=== PATIENT | female | born 1940 | race African-American/Black ===

== ENCOUNTER → 2019-05-22 12:36 | Outpatient (CLI) | payer MEDICARE, MEDICAID | END | disposition home or self-care (01) | LOC: D.US 12:36 | PROVIDERS: ATTEND Internal Medicine Nephrology | DX: N18.4 Chronic kidney disease, stage 4 (severe) (principal); E11.22 Type 2 diabetes mellitus with diabetic chronic kidney disease; D63.1 Anemia in chronic kidney disease ==

== ENCOUNTER 2019-11-08 20:23 | Inpatient (IN) | payer MEDICARE, MEDICAID ==
[~2019-11-08] VITALS: Ht 165.1 cm; Wt 62.7 kg
[~2019-11-08 20:23] MED LIST: CRESTOR10 MG PO; FUROSEMIDE40 MG PO; LISINOPRIL40 MG PO; PROCARDIA XL60 MG PO; TUMS X-STR300 MG PO; ULTRAM50 MG PO
[2019-11-08 22:28] VITALS: BP 183/70
--- NOTE | 2019-11-08 23:56 | NUR ---
WHILE ASSESSING PT SHE REQUESTED TO GO TO THE B/R. ASSISTED HER OOB AND WHEN WE GOT TO B/R DOOR SHE BECAME RIDGED AND EYES FORWARD. ASSISTEED TO TOILET SEAT AND HER BODY BECAME STIFF AND HER HEAD WHEN BACKWARD TOWARDS THE WALL. ABLE TO PULL HER AWAY FROM WALL KEEPING HER FROM HITTING HER HEAD. SHE HAD STOPPED BREATHING AND THIS NURSE CALLED A RAPID. SHE WAS COMMING TO WHEN ICU AND RT SHOWED UP. GOT HER BACK TO BED AND SHE BECAME NAUSEATED AND STARTED VOMITING. EMESIS WAS A DARK BROWN IN COLOR. SHE THEN STARTED DRY HEAVING. LAB ANTONIA BLOOD AND AWAITING RESULTS.
[2019-11-09 00:03] LABS: BASOPHILS 0.1 % (0-2); EOSINOPHILS 0 % (0-7); HEMATOCRIT 27.4 % (36.0-48.0); HEMOGLOBIN 9.4 g/dL (12-16); IMMATURE GRANULOCYTES 0.3 % (0-5); LYMPHOCYTES 7.3 % (15-50); MCH 28.8 pg (26.0-34.0); MCHC 34.3 g/dL (31.0-37.0); MEAN PLATELET VOLUME 8.3 fL (7.4-10.4); MONOCYTES 5.3 % (2-11); PLATELET COUNT 136 10x3/uL (130-400); RBC 3.26 10x6/uL (4.00-5.40); RDW 15.2 % (11.5-14.5); WBC 12.8 10x3/uL (4.8-10.8)
[2019-11-09 00:26] VITALS: BP 183/70; BMI 19.8
[2019-11-09 01:02] LABS: ALBUMIN 3.4 g/dL (3.4-5.0); BILIRUBIN - TOTAL 0.72 mg/dL (0.2-1.3); CALCIUM 8.5 mg/dL (8.5-10.1); CARBON DIOXIDE 14.2 mmol/L (21.0-32.0); CREATININE - SERUM 6.5 mg/dL (0.6-1.3); POTASSIUM - SERUM 3.2 mmol/L (3.5-5.1); PROTEIN - SERUM 7.8 g/dL (6.4-8.2)
[2019-11-09 04:00] VITALS: BP 150/66
[2019-11-09 05:19] LABS: BASOPHILS 0 % (0-2); EOSINOPHILS 0 % (0-7); HEMATOCRIT 27.3 % (36.0-48.0); HEMOGLOBIN 9.2 g/dL (12-16); IMMATURE GRANULOCYTES 0.3 % (0-5); MCH 28.3 pg (26.0-34.0); MCHC 33.7 g/dL (31.0-37.0); MEAN PLATELET VOLUME 8.8 fL (7.4-10.4); MONOCYTES 4.2 % (2-11); NEUTROPHILS 89.5 % (40-80); PLATELET COUNT 151 10x3/uL (130-400); RBC 3.25 10x6/uL (4.00-5.40); RDW 15.3 % (11.5-14.5); WBC 11.3 10x3/uL (4.8-10.8)
[2019-11-09 05:42] LABS: APTT 34.8 SECONDS (22.8-39.4); INR 1.26 (0.85-1.17); PROTIME 15.7 SECONDS (11.6-15.0)
[2019-11-09 06:31] LABS: ALBUMIN 3.2 g/dL (3.4-5.0); ANION GAP 20.4 mmol/L (8-16); BILIRUBIN - TOTAL 0.63 mg/dL (0.2-1.3); CALCIUM 8.2 mg/dL (8.5-10.1); CARBON DIOXIDE 12.7 mmol/L (21.0-32.0); CREATININE - SERUM 6.5 mg/dL (0.6-1.3); PHOSPHOROUS 6.2 mg/dL (2.5-4.9); POTASSIUM - SERUM 3.1 mmol/L (3.5-5.1); PROTEIN - SERUM 7.4 g/dL (6.4-8.2); THYROID STIMULATING HORMONE 0.79 uIU/mL (0.36-3.74)
--- NOTE | 2019-11-09 07:43 | NUR ---
PT LAYING SUPINE, RR EVEN AND UNLABORED. NO DISTRESS NOTED. CALL LIGHT WITHIN REACH. BED IN LOWEST POSITION. WILL CONTINUE TO MONITOR.
[2019-11-09 08:31] VITALS: BP 160/65
[2019-11-09 13:20] VITALS: BP 150/63
[2019-11-09 14:03] LABS: ANION GAP 18.4 mmol/L (8-16); CALCIUM 8.1 mg/dL (8.5-10.1); CARBON DIOXIDE 14.9 mmol/L (21.0-32.0); CREATININE - SERUM 6.6 mg/dL (0.6-1.3); POTASSIUM - SERUM 3.3 mmol/L (3.5-5.1)
--- NOTE | 2019-11-09 17:00 | NUR ---
NOTICED PT HAD NOT URINATED TODAY. PT DID NOT COMPLAIN OF PAIN OR DISCOMFORT. BLADDER SCAN PERFORMED. 801 MLS OF URINE NOTED. ARELLANO PLACED. BALLOON INFLATED WITH 10MLS SALINE. PT TOLERATED WELL. CALL LIGHT WITHIN REACH. PT ASSISTED WITH TRAY. DENIES FURTHER NEEDS OR PAIN AT THIS TIME. BED IN LOWEST POSITION. WILL CONTINUE TO MONITOR.
[2019-11-09 18:29] VITALS: BP 162/71
--- NOTE | 2019-11-09 19:24 | NUR ---
INITIAL ROUNDS COMPLETD. PT DECLINE ULTRAM AT THIS TIME. SR UP X2,CALL LIGHT WITHIN REACH.
[2019-11-09 20:49] LABS: BILIRUBIN NEGATIVE (NEGATIVE); GLUCOSE NEGATIVE (NEGATIVE); KETONE NEGATIVE (NEGATIVE); NITRITE NEGATIVE (NEGATIVE); SPECIFIC GRAVITY 1.015 (1.005-1.020); UROBILINOGEN NORMAL (NORMAL)
[2019-11-09 20:50] LABS: BACTERIA MODERATE /hpf (NEGATIVE); EPITHELIAL CELLS 0-5 /hpf (0-5); RED CELLS - URINE 0-5 /hpf (0-5)
--- NOTE | 2019-11-09 21:42 | NUR ---
PM MEDS GIVEN. PT DENIES ANY DISCOMFORT. CALL LIGHT WITHIN REACH.
[2019-11-10 00:30] VITALS: BP 178/72
--- NOTE | 2019-11-10 00:49 | NUR ---
PT AWAKE; DENIES ANY DISCOMFORT. SR UP X2, CALL LIGHT WITHIN REACH AND BED ALARM ON.
--- NOTE | 2019-11-10 02:57 | NUR ---
PT RESTING WITH EYES CLOSED. RESP EVEN AND REGULAR. SR UP X2, CALL LIGHT WITHIN REACH AND BED ALARM ON.
--- NOTE | 2019-11-10 04:13 | NUR ---
PT RESTING WITH EYES CLOSED. RESP EVEN AND REGULAR. SR UP X2, CALL LIGHT WITHIN REACH AND BED ALARM ON.
[2019-11-10 05:00] VITALS: BP 137/49
--- NOTE | 2019-11-10 05:48 | NUR ---
VSS THROUGHOUT NIGHT. PT DENIED ANY DISCOMOFRT. NEEDS MET; WILL CONTINUE TO MONITOR.
[2019-11-10 06:18] LABS: BASOPHILS 0.1 % (0-2); EOSINOPHILS 0 % (0-7); HEMATOCRIT 23.9 % (36.0-48.0); HEMOGLOBIN 8.1 g/dL (12-16); IMMATURE GRANULOCYTES 0.3 % (0-5); LYMPHOCYTES 8.6 % (15-50); MCH 28.5 pg (26.0-34.0); MCHC 33.9 g/dL (31.0-37.0); MCV 84.2 fL (80.0-100.0); MEAN PLATELET VOLUME 8.2 fL (7.4-10.4); MONOCYTES 5.2 % (2-11); NEUTROPHILS 85.8 % (40-80); PLATELET COUNT 123 10x3/uL (130-400); RBC 2.84 10x6/uL (4.00-5.40); RDW 15.6 % (11.5-14.5); WBC 11.6 10x3/uL (4.8-10.8)
[2019-11-10 06:54] LABS: MAGNESIUM - SERUM 2.2 mg/dL (1.8-2.4); PHOSPHOROUS 5.2 mg/dL (2.5-4.9)
[2019-11-10 06:59] LABS: % SATURATION 35 % (15-55); IRON 55 ug/dl (35-150); TOTAL IRON BIND CAPACITY 153 ug/dl (260-445); UNSAT IRON BIND CAPACITY 98 ug/dl (150-375)
--- NOTE | 2019-11-10 07:15 | NUR ---
RECEIVED PT IN BED EYES CLOSED RESP UNLABORED SKIN W/D COLOR WNL NAD NOTED
[2019-11-10 08:30] VITALS: BP 125/49
[2019-11-10 12:00] VITALS: BP 137/59
[2019-11-10 13:43] LABS: ANION GAP 17.4 mmol/L (8-16); CALCIUM 7.6 mg/dL (8.5-10.1); CARBON DIOXIDE 14.1 mmol/L (21.0-32.0); CREATININE - SERUM 5.7 mg/dL (0.6-1.3); POTASSIUM - SERUM 3.5 mmol/L (3.5-5.1)
[2019-11-10 13:53] VITALS: Ht 165.1 cm; Wt 62.7 kg
[2019-11-10 16:50] VITALS: BP 147/54
--- NOTE | 2019-11-10 19:32 | NUR ---
REPORT RECEIVED AND ROUNDING COMPLETE. PATIENT LAYING IN BED EYES CLOSED, BREATHING EVEN AND UNLABORED. EASY TO WAKE UP, STATES NO NEEDS AT THIS TIME. RIGHT AC PIV, RUNNING FLUIDS AT THIS TIME, ARELLANO CATH WITH SCANT AMOUNT OF URINE IN ARELLANO BAG. CALL LIGHT WITHIN REACH AND BED IN LOWEST LOCKED POSITION. BED ALARM ON AND WORKING PROPERLY.
[2019-11-10 20:00] VITALS: BP 125/44
[2019-11-11] VITALS (7 sets, daily range): BP systolic 124–146; BP diastolic 45–63
--- NOTE | 2019-11-11 05:29 | NUR ---
PATIENT PULLED OUT RIGHT AC SHAWNEE DILL RN PLACED A 20 GAUGE IN RIGHT FOREARM, 1 STICK PATIENT TOLERATED WELL.
[2019-11-11 06:59] LABS: T4 THYROXIN - FREE 1.15 ng/dL (0.76-1.46); THYROID STIMULATING HORMONE 0.98 uIU/mL (0.36-3.74)
[2019-11-11 08:46] LABS: ANION GAP 14.5 mmol/L (8-16); BASOPHILS 0.2 % (0-2); CALCIUM 7.8 mg/dL (8.5-10.1); CREATININE - SERUM 5.2 mg/dL (0.6-1.3); EOSINOPHILS 0 % (0-7); HEMATOCRIT 21.7 % (36.0-48.0); IMMATURE GRANULOCYTES 0.2 % (0-5); LYMPHOCYTES 14.4 % (15-50); MCH 28.5 pg (26.0-34.0); MCHC 34.1 g/dL (31.0-37.0); MCV 83.5 fL (80.0-100.0); MEAN PLATELET VOLUME 8.7 fL (7.4-10.4); NEUTROPHILS 78.2 % (40-80); PLATELET COUNT 137 10x3/uL (130-400); POTASSIUM - SERUM 3.2 mmol/L (3.5-5.1); RDW 15.4 % (11.5-14.5); WBC 9.1 10x3/uL (4.8-10.8)
[2019-11-11 08:47] LABS: CARBON DIOXIDE 19.7 mmol/L (21.0-32.0)
[2019-11-11 08:52] LABS: ALBUMIN 2.7 g/dL (3.4-5.0); BILIRUBIN - TOTAL 0.31 mg/dL (0.2-1.3); PROTEIN - SERUM 6.3 g/dL (6.4-8.2)
[2019-11-11 08:58] LABS: HEMOGLOBIN 7.4 g/dL (12-16)
--- NOTE | 2019-11-11 09:40 | NUR ---
TELEMETRY SR. UP AMBULATING WITH PT ASSIST. ARELLANO INTACT.
--- NOTE | 2019-11-11 09:54 | NUR ---
CON SENTS SIGNED FOR BLOOD TRANSFUSION.
--- NOTE | 2019-11-11 11:45 | NUR ---
1 UNIT PRBC STARTED. VS WNL. LINE IS PATENT. WILL MONITOR.
--- NOTE | 2019-11-11 19:52 | NUR ---
REPORT RECIEVED AND ROUNDING COMPLETE. PATIENT LAYING IN BED WITH EYES CLOSED, BREATHING EVEN AND UNLABORED. NO DISTRESSED NOTED. SON AT BEDSIDE WHO STATES NO NEEDS OR COMPLAINTS. PATIENT HAS RIGHT FOREARM WITH FLUIDS RUNNING. CALL LIGHT WITHIN REACH AND BED IN LOWEST POSITION.
[2019-11-12 04:34] VITALS: BP 133/56
[2019-11-12 07:43] LABS: BASOPHILS 0.1 % (0-2); EOSINOPHILS 0.1 % (0-7); HEMATOCRIT 25.8 % (36.0-48.0); IMMATURE GRANULOCYTES 0.3 % (0-5); LYMPHOCYTES 14.3 % (15-50); MCH 28.9 pg (26.0-34.0); MCHC 34.5 g/dL (31.0-37.0); MCV 83.8 fL (80.0-100.0); MEAN PLATELET VOLUME 8.6 fL (7.4-10.4); MONOCYTES 8.3 % (2-11); NEUTROPHILS 76.9 % (40-80); PLATELET COUNT 125 10x3/uL (130-400); RBC 3.08 10x6/uL (4.00-5.40); RDW 15.1 % (11.5-14.5); WBC 9.6 10x3/uL (4.8-10.8)
[2019-11-12 07:51] LABS: ANION GAP 11.3 mmol/L (8-16); CALCIUM 7.7 mg/dL (8.5-10.1); CARBON DIOXIDE 24.1 mmol/L (21.0-32.0); CREATININE - SERUM 4.9 mg/dL (0.6-1.3); HEMOGLOBIN 8.9 g/dL (12-16); POTASSIUM - SERUM 3.4 mmol/L (3.5-5.1)
[2019-11-12 07:58] LABS: MAGNESIUM - SERUM 1.9 mg/dL (1.8-2.4); PHOSPHOROUS 2.9 mg/dL (2.5-4.9)
[2019-11-12 09:00] VITALS: BP 140/55
[2019-11-12 11:00] VITALS: BP 132/55
--- NOTE | 2019-11-12 13:22 | NUR ---
Nutrition Follow-up: PO intake has been fluctuating but noted pt ate ~75% of breakfast this AM. Diet: Renal PO intake: 46% avg x 9 meals (25-100%) Wt: 119# (11/09) Labs noted: Na 127, K+ 3.4, Ca 7.7, PO4 2.9 Meds noted: Calcitriol, Tums, KCl -MD may consider liberalizing diet 2/2 low K+ & PO4 to encourage PO intake. -Offer nutrition supplements. -Monitor wt. -RD following.
[2019-11-12 15:00] VITALS: BP 136/60
[2019-11-12 20:00] VITALS: BP 133/58
[2019-11-13 04:00] VITALS: BP 150/63
[2019-11-13 09:00] VITALS: BP 154/67
[2019-11-13 11:00] VITALS: BP 148/56
--- NOTE | 2019-11-13 13:01 | NUR ---
TELEMETRY SR 80.
--- NOTE | 2019-11-13 14:58 | NUR ---
OT NOTE: PT COMPLETED SUPINE TO STAND MIN A. PT COMPLETED ADL MOB WITH CGA. [id number] THANK YOU,SWETA CLARK
[2019-11-13 15:00] VITALS: BP 153/61
[2019-11-13 16:26] LABS: CALCIUM 7.5 mg/dL (8.5-10.1); CREATININE - SERUM 4.2 mg/dL (0.6-1.3)
--- NOTE | 2019-11-13 16:38 | MORECARE ---
CASE MANAGEMENT DISCHARGE SUMMARY PATIENT: IFEOMA ALDANA UNIT: [id number] ADM DATE: 11/09/19 AGE: 79 : 42 SEX: F [facility] AUTHOR: VANIA OLVERA PHYSICIAN: REFERRING PHYSICIAN: SHANIA VALDEZ MD DATE OF SERVICE: 11/13/19 Discharge Plan Patient Name: IFEOMA ALDANA Facility: [facility]:[place] : 1940 Planned Disposition: Anticipated Discharge Date: Discharge Date: Expected LOS: Initial Reviewer: [email or web address] Initial Review Date: 11/08/2019 Generated: 11/13/19 5:37 pm Coverage Notice Reviewer: [id number] Rin Nolan Notice Issued Date-Time: 11/13/2019 16:33 Notice Type: IM Discharge Notice Notice Delivered To: Family Member Relationship to Patient: Son Product Test Specialist Name: Josefa Salgado Delivery Method: HAND - Hand Delivered Chantel Days: Prior Verbal Notification: Recipient Understood Notice: Yes Recipient Signature: Yes Med Rec Note Co-signed by Attending: Coverage Notice Comment: DC IMM signed by son Ludyinal to chart. Patient Name: IFEOMA ALDANA Page [phone] at 1638 All edits/amendments must be made on the electronic document DICTATION DATE: 11/13/191636 PREPARED FOODS SUPERVISOR: TRAV 11/13/19 1637 RPT#: [id number] DC DATE: STATUS: ADM IN [address] [address] END OF REPORT
[2019-11-13 16:43] LABS: ANION GAP 6.6 mmol/L (8-16); CARBON DIOXIDE 32.9 mmol/L (21.0-32.0); POTASSIUM - SERUM 4.5 mmol/L (3.5-5.1)
--- NOTE | 2019-11-13 16:47 | MORECARE ---
CASE MANAGEMENT DISCHARGE SUMMARY PATIENT: IFEOMA ALDANA UNIT: [id number] ADM DATE: 11/09/19 AGE: 79 : 42 SEX: F ROOM/BED: D.2114 AUTHOR: VANIA OLVERA PHYSICIAN: REFERRING PHYSICIAN: SHANIA VALDEZ MD DATE OF SERVICE: 11/13/19 Discharge Plan Patient Name: IFEOMA ALDANA Facility: [facility]:[place] : 1940 Planned Disposition: Detention Facility Anticipated Discharge Date: Discharge Date: Expected LOS: Initial Reviewer: [email or web address] Initial Review Date: 11/08/2019 Generated: 11/13/19 5:47 pm Comments DCP- Discharge Planning Updated by [email or web address]: Yajairakasie Nolan on 11/13/19 3:[address] CM met with patient and her son, Josefa Salgado #[phone], regarding DC plans. Patient's son states he would like for his mother to go into [facility] in [place] and the patient is in agreement to same. PCP: Dr. Keller. Pharmacy: [facility]. DME: None. Emergency contact: Josefa Salgado (son) [phone], at bedside. CM will be in contact with the nursing facility for admission. CM will assist with DC plans/needs PRN. DCPIA - Discharge Planning Initial Assessment Updated by [id number]: Yajaira oRdriguezlroy on 11/13/19 4:44 pm * Is the patient Alert and Oriented? Yes * How many steps to enter\exit or inside your home? None * P[facility] Dr. Keller * [facility] * Preadmission Environment Home with Family * ADLs Partial Dependent * Equipment None * Other Equipment None * List name and contact numbers for known caregivers / representatives who currently or will assist patient after discharge: Josefa salgado (ericka) [phone] * Please name any agencies selected above. [facility] * Additional services required to return to the preadmission environment? Yes * Can the patient safely return to the preadmission environment? No * Has this patient been hospitalized within the prior 30 days at any hospital? No Coverage Notice Reviewer: [id number] Rin Nolan Notice Issued Date-Time: 11/13/2019 16:33 Notice Type: IM Discharge Notice Notice Delivered To: Family Member Relationship to Patient: Son Caramel Coloring Operator Name: Josefa Salgado Delivery Method: HAND - Hand Delivered Chantel Days: Prior Verbal Notification: Recipient Understood Notice: Yes Recipient Signature: Yes Med Rec Note Co-signed by Attending: Coverage Notice Comment: DC IMM signed by son Orginal to chart. Last DP export: 11/13/19 3:38 pm Patient Name: GIO ALDANALILIAKIRA Page [phone] at 1647 All edits/amendments must be made on the electronic document DICTATION DATE: 11/13/191646 SHEET PILE HAMMER OPERATOR: TRAV 11/13/191646 RPT#: [id number] DC DATE: STATUS: ADM IN [facility] [address] [place] [address] END OF REPORT
--- NOTE | 2019-11-13 19:30 | NUR ---
RECEIVED BEDSIDE REPORT. PATIENT IS ALERT AND ORIENTED, RESTING COMFORTABLY IN BED. RESPIRATIONS ARE EVEN AND UNLABORED. NO S/S OF DISTRESS. NO C/O PAIN. CALL LIGHT WITHIN REACH. WILL CPOC.
[2019-11-13 21:11] VITALS: BP 145/62
[2019-11-14 00:32] VITALS: BP 151/63
[2019-11-14 04:51] VITALS: BP 145/56
[2019-11-14 06:28] LABS: ALBUMIN 2.4 g/dL (3.4-5.0); ANION GAP 5.6 mmol/L (8-16); BILIRUBIN - TOTAL 0.41 mg/dL (0.2-1.3); CALCIUM 7.7 mg/dL (8.5-10.1); CARBON DIOXIDE 33.1 mmol/L (21.0-32.0); CREATININE - SERUM 4.1 mg/dL (0.6-1.3); MAGNESIUM - SERUM 1.5 mg/dL (1.8-2.4); PHOSPHOROUS 2.4 mg/dL (2.5-4.9); POTASSIUM - SERUM 4.7 mmol/L (3.5-5.1); PROTEIN - SERUM 5.8 g/dL (6.4-8.2)
[2019-11-14 09:00] VITALS: BP 158/66
[2019-11-14 11:00] VITALS: BP 167/67
--- NOTE | 2019-11-14 14:14 | NUR ---
OT NOTE: PT COMPLETED BED MOB WITH MIN A. PT COMPLETED SUPINE TO SIT WITH MIN A. PT COMPLETED EOB SITTING WITH SBA. PT COMPLETED FACE/HAND HYGIENE WITH SET UP AT EOB. [phone] THANK YOU,SWETA CLARK
[2019-11-14 15:00] VITALS: BP 165/68
--- NOTE | 2019-11-14 15:00 | NUR ---
RECEIVED BEDSIDE REPORT. PATIENT IS ALERT AND ORIENTED, RESTING COMFORTABLY IN BED. RESPIRATIONS ARE EVEN AND UNLABORED. NO S/S OF DISTRESS. NO S/S OF DISTRESS. NO C/O PAIN. CALL LIGHT WITHIN REACH. WILL CPOC.
--- NOTE | 2019-11-14 17:56 | MORECARE ---
CASE MANAGEMENT DISCHARGE SUMMARY PATIENT: IFEOMA ALDANA UNIT: [id number] ADM DATE: 11/09/19 AGE: 79 : 42 SEX: F ROOM/BED: D.2114 AUTHOR: VANIA OLVERA PHYSICIAN: REFERRING PHYSICIAN: SHANIA VALDEZ MD DATE OF SERVICE: 11/14/19 Discharge Plan Patient Name: IFEOMA ALDANA Facility: [facility]:[place] : 1940 Planned Disposition: [facility] Facility Anticipated Discharge Date: Discharge Date: Expected LOS: Initial Reviewer: [email or web address] Initial Review Date: 11/08/2019 Generated: 11/14/19 6:56 pm Comments DCP- Discharge Planning Updated by [id number]: Yajairakasie Nolan on 11/13/19 3:[address] CM met with patient and her son, Josefa Salgado #[phone], regarding DC plans. Patient's son states he would like for his mother to go into [facility] in [place] and the patient is in agreement to same. PCP: Dr. Keller. Pharmacy: [facility]. DME: None. Emergency contact: Josefa Salgado (son) [phone], at bedside. CM will be in contact with the nursing facility for admission. CM will assist with DC plans/needs PRN. DCPIA - Discharge Planning Initial Assessment Updated by [id number]: Yajaira Rodriguezlroy on 11/13/19 4:44 pm * Is the patient Alert and Oriented? Yes * How many steps to enter\exit or inside your home? None * [facility] Dr. Keller * [facility] * Preadmission Environment Home with Family * ADLs Partial Dependent * Equipment None * Other Equipment None * List name and contact numbers for known caregivers / representatives who currently or will assist patient after discharge: Josefa salgado (ericka) [phone] * Please name any agencies selected above. [facility] * Additional services required to return to the preadmission environment? Yes * Can the patient safely return to the preadmission environment? No * Has this patient been hospitalized within the prior 30 days at any hospital? No Coverage Notice Reviewer: [id number] Rin Nolan Notice Issued Date-Time: 11/13/2019 16:33 Notice Type: IM Discharge Notice Notice Delivered To: Family Member Relationship to Patient: Son First Assist Name: Josefa Salgado Delivery Method: HAND - Hand Delivered Chantel Days: Prior Verbal Notification: Recipient Understood Notice: Yes Recipient Signature: Yes Med Rec Note Co-signed by Attending: Coverage Notice Comment: DC IMM signed by son Orginal to chart. Last DP export: 11/13/19 3:47 pm Patient Name: GIO ALDANALILIAKIRA Page [phone] at 1756 All edits/amendments must be made on the electronic document DICTATION DATE: 11/14/191755 HOT MAN: TRAV 11/14/191755 RPT#: [id number] DC DATE: STATUS: ADM IN [facility] [address] [place] [address] END OF REPORT
[2019-11-14 20:00] VITALS: BP 142/67
[2019-11-15 05:18] LABS: ALBUMIN 2.5 g/dL (3.4-5.0); ANION GAP 5.8 mmol/L (8-16); BILIRUBIN - TOTAL 0.42 mg/dL (0.2-1.3); CALCIUM 8.1 mg/dL (8.5-10.1); CARBON DIOXIDE 34.2 mmol/L (21.0-32.0); CREATININE - SERUM 4.1 mg/dL (0.6-1.3); MAGNESIUM - SERUM 1.8 mg/dL (1.8-2.4); PHOSPHOROUS 2.7 mg/dL (2.5-4.9); PROTEIN - SERUM 5.9 g/dL (6.4-8.2)
[2019-11-15 05:20] LABS: HEMATOCRIT 27.8 % (36.0-48.0); HEMOGLOBIN 9.2 g/dL (12-16); LYMPHOCYTES 20.4 % (15-50); MCH 30.3 pg (26.0-34.0); MCHC 33.1 g/dL (31.0-37.0); MCV 91.4 fL (80.0-100.0); MEAN PLATELET VOLUME 8.6 fL (7.4-10.4); NEUTROPHILS 69.6 % (40-80); PLATELET COUNT 154 10x3/uL (130-400); RBC 3.04 10x6/uL (4.00-5.40); RDW 16.6 % (11.5-14.5); WBC 7.2 10x3/uL (4.8-10.8)
--- NOTE | 2019-11-15 08:06 | NUR ---
AM MEDS GIVEN AT THIS TIME. PT UP TO SIDE OF BED, FIXING TO EAT BREAKFAST. PT A/O X4, RESP EVEN AND NONLABORED ON RA. ARELLANO DRAINING YELLOW URINE TO GRAVITY. PT DENIES ANY NEEDS AT THIS TIME. CALL LIGHT IN REACH, NAD NOTED,W ILL CONTINUE TO MONITOR.
[2019-11-15 09:00] VITALS: BP 142/62
--- NOTE | 2019-11-15 13:46 | NUR ---
COMPLETE BED BATH AND LINEN CHANGE DONE AT THIS TIME. PT RESTING COMFORTABLY IN BED, DENIES ANY NEEDS AT THIS TIME. CALL LIGHT IN REACH, PERLA ALARM ON, NAD NOTED,W ILL CONTINUE TO MONITOR.
[2019-11-15 20:28] VITALS: BP 172/66
--- NOTE | 2019-11-16 03:25 | NUR ---
I have reviewed this patient and I concur with the Shift Assessment completed by the Licensed Practical Nurse today this shift.
[2019-11-16 05:36] LABS: BASOPHILS 0.3 % (0-2); EOSINOPHILS 0.5 % (0-7); HEMATOCRIT 27.6 % (36.0-48.0); HEMOGLOBIN 8.8 g/dL (12-16); IMMATURE GRANULOCYTES 0.2 % (0-5); LYMPHOCYTES 21.7 % (15-50); MCHC 31.9 g/dL (31.0-37.0); MCV 91.1 fL (80.0-100.0); MONOCYTES 11.4 % (2-11); NEUTROPHILS 65.9 % (40-80); PLATELET COUNT 138 10x3/uL (130-400); RBC 3.03 10x6/uL (4.00-5.40); RDW 15.5 % (11.5-14.5); WBC 6.7 10x3/uL (4.8-10.8)
[2019-11-16 05:44] LABS: ANION GAP 8.2 mmol/L (8-16); CALCIUM 8.4 mg/dL (8.5-10.1); CARBON DIOXIDE 31.6 mmol/L (21.0-32.0); POTASSIUM - SERUM 4.8 mmol/L (3.5-5.1)
--- NOTE | 2019-11-16 08:14 | NUR ---
AM MEDS GIVEN AT THIS TIME. PT UP TO SIDE OF BED, EATING BREAKFAST, DENIES ANY NEEDS AT THIS TIME. PT A/O X4, RESP EVEN AND NONLABORED ON RA. RT FA IV SL. ARELLANO DRAINING YELLOW URINE TO GRAVITY. EMPTIED 600 OF YELLOW URINE. MONITOR SHOWING SR WITH RATE 90 AND PAC. CALL LIGHT IN REACH, BEDSIDE RAILS X2, PERLA ALARM ON, NAD NOTED, WILL CONTINUE PLAN OF CARE.
[2019-11-16 10:06] VITALS: BP 171/65
--- NOTE | 2019-11-16 14:53 | NUR ---
PT RESTING COMFORTABLY IN BED, DENIES ANY NEEDS AT THIS TIME. CALL LIGHT IN REACH,NAD NOTED, WILL CONTINUE TO MONITOR.
[2019-11-16 18:06] VITALS: BP 127/61
--- NOTE | 2019-11-16 20:08 | NUR ---
1935 REPORT RECIEVED AND INITITAL ROUNDS COMPLETED. PT RESTING IN BED. CALL LIGHT IN REACH. NO DISTRESS. SEE ASSESSMENT.
[2019-11-16 21:30] VITALS: BP 143/48
--- NOTE | 2019-11-16 21:39 | NUR ---
PT RESTING IN BED. BEDTIME MEDS GIVEN. PT SAYS VERY LITTLE IN THE WAY OF CONVERSATION. DENIES PAIN OR ANY NEEDS. LEFT ARM RESERVE FOR AVF WITH GOOD BRUIT/THRILL. PT STATES IT HAS NEVER BEEN USED, JUST THERE IN CASE SHE NEEDS IT IN THE FUTURE. PIV TO RIGHT INNER FOREARM SALINE LOCKED. CALL LIGHT IN REACH.
--- NOTE | 2019-11-17 01:01 | NUR ---
PT RESTING WITH EYES CLOSED. NO DISTRESS. CPOC.
[2019-11-17 04:29] VITALS: BP 145/70
[2019-11-17 05:19] LABS: HEMATOCRIT 27.6 % (36.0-48.0); HEMOGLOBIN 8.7 g/dL (12-16); LYMPHOCYTES 17.2 % (15-50); MCH 29.4 pg (26.0-34.0); MCHC 31.5 g/dL (31.0-37.0); MCV 93.2 fL (80.0-100.0); NEUTROPHILS 70.5 % (40-80); PLATELET COUNT 143 10x3/uL (130-400); RBC 2.96 10x6/uL (4.00-5.40); RDW 16.8 % (11.5-14.5); WBC 6.1 10x3/uL (4.8-10.8)
[2019-11-17 05:32] LABS: CALCIUM 8.4 mg/dL (8.5-10.1); CARBON DIOXIDE 31.5 mmol/L (21.0-32.0); POTASSIUM - SERUM 4.5 mmol/L (3.5-5.1)
--- NOTE | 2019-11-17 07:15 | NUR ---
RECEIVED PT IN BED EYES CLOSED RESP UNLABORED SKIN W/D COLOR WNL NAD NOTED
[2019-11-17 09:00] VITALS: BP 121/47
[2019-11-17 12:00] VITALS: BP 139/52
--- NOTE | 2019-11-17 12:09 | MORECARE ---
CASE MANAGEMENT DISCHARGE SUMMARY PATIENT: IFEOMA ALDANA UNIT: [id number] ADM DATE: 11/09/19 AGE: 79 : 42 SEX: F ROOM/BED: D.2114 AUTHOR: VANIA OLVERA PHYSICIAN: REFERRING PHYSICIAN: SHANIA VALDEZ MD DATE OF SERVICE: 11/17/19 Discharge Plan Patient Name: IFEOMA ALDANA Facility: [facility]:[place] : 1940 Planned Disposition: Penitentiary Facility Anticipated Discharge Date: Discharge Date: Expected LOS: Initial Reviewer: [email or web address] Initial Review Date: 11/08/2019 Generated: 11/17/19 1:08 pm Comments DCP- Discharge Planning Updated by [email or web address]: Yajaira An on 11/13/19 3:[address] CM met with patient and her son, Josefa Salgado #[phone], regarding DC plans. Patient's son states he would like for his mother to go into [facility] in [place] and the patient is in agreement to same. PCP: Dr. Keller. [facility] DME: None. Emergency contact: Josefa Salgado (son) [phone], at bedside. CM will be in contact with the nursing facility for admission. CM will assist with DC plans/needs PRN. DCPIA - Discharge Planning Initial Assessment Updated by [id number]: Yajaira Rodriguezlroy on 11/13/19 4:44 pm * Is the patient Alert and Oriented? Yes * How many steps to enter\exit or inside your home? None * PCP Dr. Keller * [facility] * Preadmission Environment Home with Family * ADLs Partial Dependent * Equipment None * Other Equipment None * List name and contact numbers for known caregivers / representatives who currently or will assist patient after discharge: Josefa salgado (ericka) [phone] * Please name any agencies selected above. [facility] * Additional services required to return to the preadmission environment? Yes * Can the patient safely return to the preadmission environment? No * Has this patient been hospitalized within the prior 30 days at any hospital? No External Providers External Provider: [facility] Next Contact Date: Service Request Date: Service Type: Resolution: Reviewer: Comments: Coverage Notice Reviewer: [email or web address] Rin Nolan Notice Issued Date-Time: 11/13/2019 16:33 Notice Type: IM Discharge Notice Notice Delivered To: Family Member Relationship to Patient: Son Mental Health Coordinator Name: Josefa Salgado Delivery Method: HAND - Hand Delivered Chantel Days: Prior Verbal Notification: Recipient Understood Notice: Yes Recipient Signature: Yes Med Rec Note Co-signed by Attending: Coverage Notice Comment: DC IMM signed by son Dea to chart. Last DP export: 11/14/19 4:56 p Patient Name: IFEOMA ALDANA Page [phone] at 1209 All edits/amendments must be made on the electronic document DICTATION DATE: 11/17/191207 RADIOGRAPHIC TECHNOLOGIST: TRAV 11/17/19 1208 RPT#: [id number] DC DATE: STATUS: ADM IN [facility] [address] [place] [address] END OF REPORT
--- NOTE | 2019-11-17 12:48 | MORECARE ---
CASE MANAGEMENT DISCHARGE SUMMARY PATIENT: IFEOMA ALDANA UNIT: [id number] ADM DATE: 11/09/19 AGE: 79 : 42 SEX: F ROOM/BED: D.2114 AUTHOR: VANIA OLVERA PHYSICIAN: REFERRING PHYSICIAN: SHANIA VALDEZ MD DATE OF SERVICE: 11/17/19 Discharge Plan Patient Name: IFEOMA ALDANA Facility: [facility]:[place] : 1940 Planned Disposition: [facility] Facility Anticipated Discharge Date: Discharge Date: Expected LOS: Initial Reviewer: [email or web address] Initial Review Date: 11/08/2019 Generated: 11/17/19 1:47 pm Comments DCP- Discharge Planning Updated by [id number]: Yajaiar Nolan on 11/17/19 11:[address] CM contacted Radha Ko, for assistance with [facility] placement. Faxed required information. DCP- Discharge Planning Updated by [email or web address]: Yajaira Nolan on 11/13/19 3:[address] CM met with patient and her son, Josefa Salgado #[phone], regarding DC plans. Patient's son states he would like for his mother to go into [facility] in [place] and the patient is in agreement to same. PCP: Dr. Keller. Pharmacy: [facility]. DME: None. Emergency contact: Josefa Salgado (ericka) [phone], at bedside. CM will be in contact with the nursing facility for admission. CM will assist with DC plans/needs PRN. DCPIA - Discharge Planning Initial Assessment Updated by [id number]: Yajaira Nolan on 11/13/19 4:44 pm * Is the patient Alert and Oriented? Yes * How many steps to enter\exit or inside your home? None * PCP Dr. Keller * Pharmacy [facility] * Preadmission Environment Home with Family * ADLs Partial Dependent * Equipment None * Other Equipment None * List name and contact numbers for known caregivers / representatives who currently or will assist patient after discharge: Josefa salgado (ericka) [phone] * Please name any agencies selected above. [facility] * Additional services required to return to the preadmission environment? Yes * Can the patient safely return to the preadmission environment? No * Has this patient been hospitalized within the prior 30 days at any hospital? No Coverage Notice Reviewer: [id number] Rin Nolan Notice Issued Date-Time: 11/13/2019 16:33 Notice Type: IM Discharge Notice Notice Delivered To: Family Member Relationship to Patient: Son Loom Changeover Operator Name: Josefa Salgado Delivery Method: HAND - Hand Delivered Chantel Days: Prior Verbal Notification: Recipient Understood Notice: Yes Recipient Signature: Yes Med Rec Note Co-signed by Attending: Coverage Notice Comment: DC IMM signed by son Dea to chart. Last DP export: 11/17/19 11:09 a Patient Name: IFEOMA ALDANA Page [phone] at 1248 All edits/amendments must be made on the electronic document DICTATION DATE: 11/17/19 1247 MECHANICAL SYSTEMS DESIGNER: TRAV 11/17/19 1247 RPT#: [id number] DC DATE: STATUS: ADM IN [facility] [address] [place] [address] END OF REPORT
--- NOTE | 2019-11-17 14:01 | NUR ---
Nutrition Follow-up: Pt sleeping soundly at time of visit this AM and did not wake upon entering room. No family at BS. Chart reviewed. Noted pt ate ~50% of breakfast this AM. Awaiting placement. Diet: Renal PO intake: 71% avg x 7 meals Wt: 119# (11/09) No BMs recorded Labs noted: Na 133, Ca 8.4 Meds noted: Calcitriol, Tums -Encourage PO intake and honor food preferences within diet restrictions. -Offer Nepro with meals. -Monitor wt. -RD following.
[2019-11-17 15:00] VITALS: BP 158/63
--- NOTE | 2019-11-17 19:00 | NUR ---
REPORT RECEIVED, WILL CONTINUE POC. PATIENT IS RESTING IN BED WITH EYES CLOSED. NO S/S OF DISTRESS OBSERVED, RR EVEN AND UNLABORED ON ROOM AIR. F/C PATENT DRAINING CONCENTRATED URINE BY GRAVITY. PATIENT DENIES NEEDS AT THIS TIME. CL IN REACH, BED LOCKED AND LOWERED. WILL CTM.
[2019-11-17 21:21] VITALS: BP 134/55
[2019-11-18 00:39] VITALS: BP 148/54
--- NOTE | 2019-11-18 05:00 | NUR ---
I have reviewed this patient and I concur with the Shift Assessment completed by the Licensed Practical Nurse today this shift.
[2019-11-18 06:27] VITALS: BP 155/60
[2019-11-18 06:46] LABS: HEMATOCRIT 27.1 % (36.0-48.0); HEMOGLOBIN 8.6 g/dL (12-16); LYMPHOCYTES 31.8 % (15-50); MCH 29.9 pg (26.0-34.0); MCHC 31.7 g/dL (31.0-37.0); MCV 94.1 fL (80.0-100.0); MEAN PLATELET VOLUME 9.2 fL (7.4-10.4); NEUTROPHILS 58.3 % (40-80); PLATELET COUNT 135 10x3/uL (130-400); RBC 2.88 10x6/uL (4.00-5.40); RDW 16.5 % (11.5-14.5); WBC 4.9 10x3/uL (4.8-10.8)
[2019-11-18 06:51] LABS: ANION GAP 7.1 mmol/L (8-16); CALCIUM 8.4 mg/dL (8.5-10.1); CARBON DIOXIDE 32.6 mmol/L (21.0-32.0); CREATININE - SERUM 4.3 mg/dL (0.6-1.3); POTASSIUM - SERUM 4.7 mmol/L (3.5-5.1)
[2019-11-18 08:22] VITALS: BP 153/61
[2019-11-18 11:57] VITALS: BP 115/61
--- NOTE | 2019-11-18 14:28 | MORECARE ---
CASE MANAGEMENT DISCHARGE SUMMARY PATIENT: IFEOMA ALDANA UNIT: [id number] ADM DATE: 11/09/19 AGE: 79 : 42 SEX: F ROOM/BED: D.5504 AUTHOR: WADE,DOC PHYSICIAN: REFERRING PHYSICIAN: SHANIA VALDEZ MD DATE OF SERVICE: 11/18/19 Discharge Plan Patient Name: IFEOMA ALDANA Facility: [facility]:[place] : 1940 Planned Disposition: [facility] Facility Anticipated Discharge Date: Discharge Date: Expected LOS: Initial Reviewer: [id number] Initial Review Date: 11/08/2019 Generated: 11/18/19 3:27 pm Comments DCP- Discharge Planning Updated by [id number]: Yajaira Nolan on 11/18/19 1:[address] DC plans: [facility] to a SNF bed 11/18. Request from Annabella Dasilva, with [facility] requesting information be faxed. Radha Maikel is also working on this for the same facility. Per Annabella, the patient can be accepted 11/18 to a SNF bed. CM will contact family to see if they can transport to the facility 11/18. CM left a message on Josefa Salgado phone to request transportation 11/18. cm contacted the patient's niece, Kerry Aldana [phone] and she is unable to transport patient. CM has reached out to Radha Ko for transport. DCP- Discharge Planning Updated by [email or web address]: Yajaira Nolan on 11/17/19 11:[address] CM contacted [place] Maikel, for assistance with [facility] placement. Faxed required information. DCP- Discharge Planning Updated by [id number]: Yajaira Nolan on 11/13/19 3:[address] CM met with patient and her son, Josefa Salgado #[phone], regarding DC plans. Patient's son states he would like for his mother to go into [facility] in [place] and the patient is in agreement to same. PCP: Dr. Keller. Pharmacy: [facility]. DME: None. Emergency contact: Josefa Salgado (ericka) [phone], at bedside. CM will be in contact with the nursing facility for admission. CM will assist with DC plans/needs PRN. DCPIA - Discharge Planning Initial Assessment Updated by [id number]: Yajaira Nolan on 11/13/19 4:44 pm * Is the patient Alert and Oriented? Yes * How many steps to enter\exit or inside your home? None * PCP Dr. Keller * Pharmacy [facility] * Preadmission Environment Home with Family * ADLs Partial Dependent * Equipment None * Other Equipment None * List name and contact numbers for known caregivers / representatives who currently or will assist patient after discharge: Josefa salgado (ericka) [phone] * Please name any agencies selected above. [facility] * Additional services required to return to the preadmission environment? Yes * Can the patient safely return to the preadmission environment? No * Has this patient been hospitalized within the prior 30 days at any hospital? No Coverage Notice Reviewer: [id number] - Yajaira Nolan Notice Issued Date-Time: 11/13/2019 16:33 Notice Type: IM Discharge Notice Notice Delivered To: Family Member Relationship to Patient: Son Fiber Worker Name: Josefa Salgado Delivery Method: HAND - Hand Delivered Chantel Days: Prior Verbal Notification: Recipient Understood Notice: Yes Recipient Signature: Yes Med Rec Note Co-signed by Attending: Coverage Notice Comment: DC IMM signed by ericka Malin to chart. Last DP export: 11/17/19 11:48 a Patient Name: CHRISTINE ALDANASYLVIA Page [phone] at 1428 All edits/amendments must be made on the electronic document DICTATION DATE: 11/18/191426 CLOTH FINISHER: TRAV 11/18/19 142 RPT#: [id number] DC DATE: STATUS: ADM IN [facility] [address] [place] [address] END OF REPORT
[2019-11-18 16:32] VITALS: BP 165/60
--- NOTE | 2019-11-18 19:00 | NUR ---
RECEIVED BEDSIDE REPORT. PATIENT IS ALERT AND ORIENTED, RESTING COMFORTABLY IN BED. RESPIRATIONS ARE EVEN AND UNLABORED. NO S/S OF DISTRESS. NO C/O PAIN. DENIES NEEDS AT THIS TIME. CALL LIGHT WITHIN REACH. WILL CPOC.
[2019-11-18 20:00] VITALS: BP 141/51
[2019-11-19 06:16] LABS: ANION GAP 6.5 mmol/L (8-16); CALCIUM 8.6 mg/dL (8.5-10.1); CARBON DIOXIDE 31.9 mmol/L (21.0-32.0); CREATININE - SERUM 4.5 mg/dL (0.6-1.3); POTASSIUM - SERUM 4.4 mmol/L (3.5-5.1)
[2019-11-19 07:36] LABS: HEMATOCRIT 25.9 % (36.0-48.0); HEMOGLOBIN 8.1 g/dL (12-16); LYMPHOCYTES 25.6 % (15-50); MCH 29.7 pg (26.0-34.0); MCHC 31.3 g/dL (31.0-37.0); MCV 94.9 fL (80.0-100.0); MEAN PLATELET VOLUME 8.4 fL (7.4-10.4); NEUTROPHILS 63.6 % (40-80); PLATELET COUNT 126 10x3/uL (130-400); RBC 2.73 10x6/uL (4.00-5.40); RDW 16.3 % (11.5-14.5); WBC 5.2 10x3/uL (4.8-10.8)
--- NOTE | 2019-11-19 08:43 | NUR ---
OT NOTE: (DOS 11/18/2019) PT COMPLETED SUPINE TO SIT WITH SBA/CGA. PT COMPLETED SIT TO STAND WITH SBA/CGA. PT COMPLETED ADL MOB WITH RW WITH SBA/CGA. [phone] THANK YOU,SWETA CLARK
[2019-11-19 09:00] VITALS: BP 139/76
--- NOTE | 2019-11-19 09:06 | MORECARE ---
CASE MANAGEMENT DISCHARGE SUMMARY PATIENT: BRANDIE ALDANA UNIT: [id number] ADM DATE: 11/09/19 AGE: 79 : 44 SEX: F ROOM/BED: D.7544 AUTHOR: WADE,DOC PHYSICIAN: REFERRING PHYSICIAN: SHANIA VALDEZ MD DATE OF SERVICE: 11/19/19 Discharge Plan Patient Name: BRANDIE ALDANA Facility: [facility]:[place] : 1940 Planned Disposition: Group Home Facility Anticipated Discharge Date: 11/19/19 Discharge Date: Expected LOS: 10 Initial Reviewer: [id number] Initial Review Date: 11/08/2019 Generated: 11/19/19 10:05 am Comments DCP- Discharge Planning Updated by [email or web address]: Yajaira Nolan on 11/18/19 1:[address] DC plans: [facility] to a SNF bed 11/18. Request from Annabella Dasilva, with [facility] requesting information be faxed. Radha Ko is also working on this for the same facility. Per Annabella, the patient can be accepted 11/18 to a SNF bed. CM will contact family to see if they can transport to the facility 11/18. CM left a message on Josefa Salgado phone to request transportation 11/18. cm contacted the patient's niece, Kerry Aldana [phone] and she is unable to transport patient. CM has reached out to Radha Ko for transport. DCP- Discharge Planning Updated by [id number]: Yajaira Nolan on 11/17/19 11:[address] CM contacted Radha Maikel, for assistance with [facility] placement. Faxed required information. DCP- Discharge Planning Updated by [email or web address]: Yajaira Nolan on 11/13/19 3:[address] CM met with patient and her son, Josefa Salgado #[phone], regarding DC plans. Patient's son states he would like for his mother to go into [facility] in [place] and the patient is in agreement to same. PCP: Dr. Keller. Pharmacy: [facility]. DME: None. Emergency contact: Josefa Salgado (ericka) [phone], at bedside. CM will be in contact with the nursing facility for admission. CM will assist with DC plans/needs PRN. DCPIA - Discharge Planning Initial Assessment Updated by [email or web address]: Yajaira Nolan on 11/13/19 4:44 pm * Is the patient Alert and Oriented? Yes * How many steps to enter\exit or inside your home? None * PCP Dr. Keller * Pharmacy [facility] * Preadmission Environment Home with Family * ADLs Partial Dependent * Equipment None * Other Equipment None * List name and contact numbers for known caregivers / representatives who currently or will assist patient after discharge: Josefa salgado (ericka) [phone] * Please name any agencies selected above. [facility] * Additional services required to return to the preadmission environment? Yes * Can the patient safely return to the preadmission environment? No * Has this patient been hospitalized within the prior 30 days at any hospital? No Coverage Notice Reviewer: [id number] Rin Nolan Notice Issued Date-Time: 11/13/2019 16:33 Notice Type: IM Discharge Notice Notice Delivered To: Family Member Relationship to Patient: Son Side Gluer Name: Josefa Salgado Delivery Method: HAND - Hand Delivered Chantel Days: Prior Verbal Notification: Recipient Understood Notice: Yes Recipient Signature: Yes Med Rec Note Co-signed by Attending: Coverage Notice Comment: DC IMM signed by ericka Malin to chart. Reviewer: [id number] Rin Nolan Notice Issued Date-Time: 11/18/2019 14:27 Notice Type: Medicare Outpatient Observation Notice Notice Delivered To: Patient Relationship to Patient: Self Side Gluer Name: Brandie Aldana Delivery Method: HAND - Hand Delivered Chantel Days: Prior Verbal Notification: Recipient Understood Notice: Yes Recipient Signature: Yes Med Rec Note Co-signed by Attending: Coverage Notice Comment: DC IMM to chart. Last DP export: 11/18/19 1:27 p Patient Name: BRANDIE ALDANA Page [id number] at 0906 All edits/amendments must be made on the electronic document DICTATION DATE: 07/15/20 0905 ADVERTISING PROJECT MANAGER: TRAV 11/19/19904 RPT#: [id number] DC DATE: STATUS: ADM IN [facility] [address] [place] [address] END OF REPORT
[2019-11-19] MEDS ORDERED: COREG6.25 MG PO (09:54)
[2019-11-19] MEDS ORDERED: FOLIC ACID1 MG PO (09:55)
[2019-11-19] MEDS ORDERED: ROCALTROL0.25 MCG PO (09:55)
--- NOTE | 2019-11-19 09:58 | MORECARE ---
CASE MANAGEMENT DISCHARGE SUMMARY PATIENT: BRANDIE ALDANA UNIT: [id number] ADM DATE: 11/09/19 AGE: 79 : 42 SEX: F ROOM/BED: D.1784 AUTHOR: WADE,DOC PHYSICIAN: REFERRING PHYSICIAN: SHANIA VALDEZ MD DATE OF SERVICE: 11/19/19 Discharge Plan Patient Name: BRANDIE ALDANA Facility: [facility]:[place] : 1940 Planned Disposition: Shelter Facility Anticipated Discharge Date: 11/19/19 Discharge Date: Expected LOS: 10 Initial Reviewer: [email or web address] Initial Review Date: 11/08/2019 Generated: 11/19/19 10:57 am Comments DCP- Discharge Planning Updated by [id number]: Yajaira Nolan on 11/19/19 8:[address] Faxed DC order and MAR to [facility]. Notified patient's son, Josefa Salgado of DC today around 1400 to a SNF facility. DCP- Discharge Planning Updated by [email or web address]: Yajaira Nolan on 11/18/19 1:[address] DC plans: [facility] to a SNF bed 11/18. Request from Annabella Dasilva, with [facility] requesting information be faxed. Radha Ko is also working on this for the same facility. Per Annabella, the patient can be accepted 11/18 to a SNF bed. CM will contact family to see if they can transport to the facility 11/18. CM left a message on Josefa Salgado phone to request transportation 11/18. cm contacted the patient's niece, Kerry Aldana [phone] and she is unable to transport patient. CM has reached out to Radha Ko for transport. DCP- Discharge Planning Updated by [email or web address]: Yajaira Nolan on 11/17/19 11:[address] CM contacted Radha Ko, for assistance with [facility] placement. Faxed required information. DCP- Discharge Planning Updated by [id number]: Yajaira Nolan on 11/13/19 3:[address] CM met with patient and her son, Josefa Salgado #[phone], regarding DC plans. Patient's son states he would like for his mother to go into [facility] in [place] and the patient is in agreement to same. PCP: Dr. Keller. Pharmacy: [facility]. DME: None. Emergency contact: Josefa Salgado (ericka) [phone], at bedside. CM will be in contact with the nursing facility for admission. CM will assist with DC plans/needs PRN. DCPIA - Discharge Planning Initial Assessment Updated by [email or web address]: Yajaira Nolan on 11/13/19 4:44 pm * Is the patient Alert and Oriented? Yes * How many steps to enter\exit or inside your home? None * PCP Dr. Keller * Pharmacy [facility] * Preadmission Environment Home with Family * ADLs Partial Dependent * Equipment None * Other Equipment None * List name and contact numbers for known caregivers / representatives who currently or will assist patient after discharge: Josefa rubi) [phone] * Please name any agencies selected above. [facility] * Additional services required to return to the preadmission environment? Yes * Can the patient safely return to the preadmission environment? No * Has this patient been hospitalized within the prior 30 days at any hospital? No Coverage Notice Reviewer: [id number] Rin Nolan Notice Issued Date-Time: 11/13/2019 16:33 Notice Type: IM Discharge Notice Notice Delivered To: Family Member Relationship to Patient: Son Business Banking Manager Name: Josefa Salgado Delivery Method: HAND - Hand Delivered Chantel Days: Prior Verbal Notification: Recipient Understood Notice: Yes Recipient Signature: Yes Med Rec Note Co-signed by Attending: Coverage Notice Comment: DC IMM signed by ericka Ludyinal to chart. Reviewer: [id number] Rin Nolan Notice Issued Date-Time: 11/18/2019 14:27 Notice Type: Medicare Outpatient Observation Notice Notice Delivered To: Patient Relationship to Patient: Self Business Banking Manager Name: Brandie Magda Delivery Method: HAND - Hand Delivered Chantel Days: Prior Verbal Notification: Recipient Understood Notice: Yes Recipient Signature: Yes Med Rec Note Co-signed by Attending: Coverage Notice Comment: DC IMM to chart. Last DP export: 11/19/19 8:06 a Patient Name: BRANDIE ALDANA Page [phone] at 0958 All edits/amendments must be made on the electronic document DICTATION DATE: 11/19/19956 FOREST PATHOLOGY ASSOCIATE PROFESSOR: TRAV 11/19/19956 RPT#: [id number] DC DATE: STATUS: ADM IN [facility] [address] [place] [address] END OF REPORT
--- NOTE | 2019-11-19 13:09 | NUR ---
I have reviewed this patient and I concur with the Shift Assessment completed by the Licensed Practical Nurse today this shift.
--- NOTE | 2019-11-19 14:37 | NUR ---
OT NOTE: PT PERFORMED BED MOB WITH CGA; AMB TO BATHROOM WITH CGA; TOILETING WITH MIN ASSIST; BACK TO BED WITH CGA. DARYL VERDUGO, OTR/L [phone]
[2019-11-19 15:00] VITALS: BP 122/45
--- NOTE | 2019-11-19 15:59 | NUR ---
OT NOTE: PT COMPLETED SUPINE TO SIT WITH SBA. PT COMPLETED SIT TO STAND WITH CGA. PT COMPLETED ADL MOB WITH CGA. PT COMPLETED FACE AND HAND HYGIENE TASKS AT SINK LEVEL WITH CGA. [phone] THANK YOU,SWETA CLARK
== END 2019-11-19 19:30 | DRG 683 ==
LOC: D.ER 20:23 → D.M2 20:39 → OBSVTIME 20:39 → D.M2 11-09 10:42
PROVIDERS: Family Medicine; Internal Medicine; ADMIT Internal Medicine Nephrology; ATTEND Internal Medicine Nephrology
DX: N17.9 Acute kidney failure, unspecified (principal); N39.0 Urinary tract infection, site not specified; I12.0 Hypertensive chronic kidney disease with stage 5 chronic kidney disease or end stage renal disease; E87.1 Hypo-osmolality and hyponatremia; N18.5 Chronic kidney disease, stage 5; N25.81 Secondary hyperparathyroidism of renal origin; E86.0 Dehydration; E87.6 Hypokalemia; R19.7 Diarrhea, unspecified; D63.1 Anemia in chronic kidney disease